=== PATIENT | male | born 1995 | race Caucasian/White ===

== ENCOUNTER 2019-01-29 13:59 | Day surgery (SDC) | payer OTHER ==
[~2019-01-29] VITALS: Ht 182.9 cm; Wt 62.3 kg
[~2019-01-29 13:59] MED LIST: CODACE30 PO; FLUO10 PO; LANS1COM10 PO; RXAMOX250S PO; RXCODACET PO
--- NOTE | 2019-01-29 15:38 | NUR ---
01/29/19 1538 Syd Ferrara INFORMED PT AND MOM OF DELAY. BOTH PT AND MOM STATE AN UNDERSTADING. PT RESTING COMFORTABLY IN PRE OP. CALL LIGHT WITH IN REACH. VSS. WILL CONTINUE TO MONITOR.
--- NOTE | 2019-01-29 16:52 | NUR ---
01/29/19 7721 Syd Ferrara INJECTED 3 MLS EPINEPHRINE WITH INJECTION NEEDLE PER DR. BUTLER FOR POLYPECTOMY.
== END 2019-01-29 17:37 | disposition home or self-care (01) ==
LOC: ORSCSDS 13:59
PROVIDERS: Student in an Organized Health Care Education/Training Program
PROC: 0DBP8ZX Excision of Rectum, Via Natural or Artificial Opening Endoscopic, Diagnostic (ICD-10-PCS; principal; 2019-01-29 15:15)
PROC: 3E0H8GC Introduction of Other Therapeutic Substance into Lower GI, Via Natural or Artificial Opening Endoscopic (ICD-10-PCS; principal; 2019-01-29 15:15)
PROC: 0DBN8ZX Excision of Sigmoid Colon, Via Natural or Artificial Opening Endoscopic, Diagnostic (ICD-10-PCS; principal; 2019-01-29 15:15)
DX: K92.1 Melena (principal); R10.32 Left lower quadrant pain; D12.5 Benign neoplasm of sigmoid colon; K62.1 Rectal polyp; K64.8 Other hemorrhoids
CPT/HCPCS: 88305; J2250; J2704; J7120